=== PATIENT | female | born 1975 | race Caucasian/White ===

== ENCOUNTER 2023-08-22 11:43 | Outpatient (CLI) | payer BC, SELFPAY | END 2023-08-22 11:44 | disposition home or self-care (01) | LOC: NFLDREF 11:44 | PROVIDERS: Visit Provider Obstetrics & Gynecology | DX: R68.82 Decreased libido (principal); F52.0 Hypoactive sexual desire disorder | CPT/HCPCS: 84403 ==

== ENCOUNTER 2023-10-09 13:37 | Outpatient (CLI) | payer BC, SELFPAY | END 2023-10-09 13:38 | disposition home or self-care (01) | LOC: NFLDREF 10-14 10:20 | PROVIDERS: Visit Provider Obstetrics & Gynecology | DX: N95.1 Menopausal and female climacteric states (principal) | CPT/HCPCS: 84403 ==

== ENCOUNTER 2024-01-21 16:10 | Outpatient (CLI) | payer BC, SELFPAY | END 2024-01-21 16:11 | disposition home or self-care (01) | LOC: NFLDREF 02-06 04:04 | PROVIDERS: Visit Provider Obstetrics & Gynecology | DX: Z79.899 Other long term (current) drug therapy (principal) | CPT/HCPCS: 84403 ==

== ENCOUNTER 2024-10-21 10:42 | Outpatient (CLI) | payer BC, SELFPAY | END 2024-10-21 10:43 | disposition home or self-care (01) | LOC: NFLDREF 10:42 | PROVIDERS: Visit Provider Obstetrics & Gynecology | DX: F52.0 Hypoactive sexual desire disorder (principal); Z79.899 Other long term (current) drug therapy; Z13.220 Encounter for screening for lipoid disorders | CPT/HCPCS: 80061; 84403 ==

== ENCOUNTER 2025-01-18 08:05 | Outpatient (CLI) | payer BC, SELFPAY ==
--- NOTE | 2025-01-18 08:15 | CRLHL7_ITS ---
For Patients: As a result of the Century Cures Act, medical imaging exams and procedure reports are released immediately into your electronic medical record. You may view this report before your referring provider. If you have questions, please contact your health care provider. INDICATION: BILATERAL SCREENING MAMMOGRAM, ASYMPTOMATIC 49 Y/O FEMALE COMPARISON: NOT AVAILABLE TECHNIQUE: Digital mammogram in CC and MLO projections including computer-aided detection (CAD) and tomosynthesis. BREAST COMPOSITION: There are scattered areas of fibroglandular density. FINDINGS: No suspicious findings. ASSESSMENT: BI-RADS 1 Negative RECOMMENDATION: Annual screening mammogram. A lay language report of this examination will be provided to the patient. Dictated by: Nilton Luo MD @ 01/29/2025 09:57:32 (Electronically Signed)
== END 2025-01-18 08:06 | disposition home or self-care (01) ==
LOC: MAMMO 08:06
PROVIDERS: Visit Provider Obstetrics & Gynecology
DX: Z12.31 Encounter for screening mammogram for malignant neoplasm of breast (principal)
CPT/HCPCS: 77063; 77067